=== PATIENT | male | born 1955 | race Caucasian/White ===

== ENCOUNTER 2020-01-26 02:43 | Outpatient (CLI) | payer BC, SELFPAY ==
[2020-01-26 18:39] LABS: SARS-CoV-2 RNA PCR Negative
== END 2020-01-26 02:44 | disposition home or self-care (01) ==
LOC: ANHCOVIDDT 02:43
PROVIDERS: PCP Family Medicine; Visit Provider Surgery
DX: Z01.812 Encounter for preprocedural laboratory examination (principal); Z20.828 Contact with and (suspected) exposure to other viral communicable diseases
CPT/HCPCS: 87635; C9803; U0003

== ENCOUNTER 2020-01-28 00:45 | Day surgery (SDC) | payer BC, SELFPAY ==
[2020-01-21 17:07] VITALS: BMI 25.0
[2020-01-28] VITALS (8 sets, daily range): BP systolic 112–149; BP diastolic 72–82; PULSE 54–68; RESP 14–20; TEMP 36.3–36.7; O2SAT 93–100; BMI 25.2
--- NOTE | 2020-01-28 07:33 | WPDHPUPDATE1 ---
History and Physical Update Update Date/Time: 01/28/20 07:33 History and Physical has been reviewed, including an updated exam of the patient. There are NO changes in the patient's condition. Risks, benefits, and alternatives have been discussed and questions answered. Patient agrees to proceed with procedure.
[2020-01-28] MEDS: LACTATED RINGERS 1,000 ML 30 ML IV CONT ×2 (10:21→12:46)
[2020-01-28] MEDS: ACETAMINOPHEN 500 MG TABLET 1000 MG PO (10:22)
[2020-01-28] MEDS: KETOROLAC 15 MG/ML VIAL (*BKC) IV PUSH (10:22)
[2020-01-28 10:31] LABS: Glucose Point of Care 99 (65-105)
--- NOTE | 2020-01-28 10:45 | WPDANESEPPF ---
Anes - Initial Pre Proc Eval Procedure: Operation Date: 01/28/20 11:30 Proposed Procedures p Repair Recurrent Right Inguinal Hernia - Jeff Bowling MD Date/Time: 01/28/20 10:45 Surgeon: Jeff Bowling MD Pre Op Diagnosis: recurrent right inguinal hernia Patient Data Age: 64 Gender: M Height: 5 ft 9 in Weight: 77.5 kg Last Vital Signs Temp 98.1 F 01/28/20 09:51 Pulse 68 01/28/20 09:51 Resp 16 01/28/20 09:51 BP 149/77 H 01/28/20 09:51 Pulse Ox 97 01/28/20 09:51 Allergies Allergy/AdvReac Type Severity Reaction Status Date / Time clarithromycin Allergy Intermediate Palpitation Verified 01/28/20 09:47 s METOCLOPRAMIDE HCL Allergy Intermediate Anxiety Uncoded 01/28/20 09:47 Home Medications Medication Instructions Recorded Confirmed Type amitriptyline 25 mg tablet 25 mg PO .QHS tablet 01/03/20 01/28/20 History coenzyme Q10 100 mg capsule 100 mg PO DAILY 01/03/20 01/28/20 History diltiazem HCl 120 mg 120 mg PO DAILY 01/03/20 01/28/20 History capsule,extended release 24 hr dutasteride 0.5 mg capsule 0.5 mg PO DAILY 01/03/20 01/28/20 History krill oil 500 mg capsule 500 mg PO DAILY 01/03/20 01/28/20 History metformin 500 mg tablet 250 mg PO BID tablet 01/03/20 01/28/20 History multivitamin 1 tablet PO DAILY 01/03/20 01/28/20 History perphenazine 2 mg tablet 2 mg PO DAILY PRN tablet 01/03/20 01/28/20 History rosuvastatin 20 mg tablet 5 mg PO .every other day tablet 01/03/20 01/28/20 History Bifidobacterium infantis [Align] 4 mg PO DAILY 01/28/20 01/28/20 History Laboratory Tests 01/28/20 10:27 POC Capillary Glucose 99 mg/dl mg/dl (65-105) Patient hx anesthesia problems: none Family hx anesthesia problems: none PMFSH Social History Social History Smoking status: Never smoker Second hand tobacco smoke exposure: No Alcohol intake: never Substance use: never Substance use type: does not use Living arrangements: with family Gender identity (if verbalized by the patient): Male Spiritual care concerns: No Anes - Eval Final PreProcedure Day of Procedure 01/28/20 10:45 Patient weight: normal Heart: regular rate and rhythm Lungs: clear to auscultation Airway: Mallampati scale class II Neurological: alert and oriented Last oral intake: >/= 8 hours ASA classification: III Emergent: no Anesthetic plan: proceed Anesthesia type and monitoring: general GIVS and standard monitoring Informed Consent: The patient's anesthetic plan and its attendant risks and benefits were discussed with the patient/family/POA. Questions were solicited and answers provided to the satisfaction of the patient/family/POA.
[2020-01-28] MEDS: ceFAZolin 2 GM/D5W 50 ML 2 GM/50 ML BAG IVPB (11:07)
--- NOTE | 2020-01-28 11:15 | PM.PROC ---
Procedure Note - Detailed Date of procedure: 01/28/20 Pre-op diagnosis: recurrent right inguinal hernia Recurrent right inguinal hernia Post-op diagnosis: same Procedure performed: Repair of Recurrent right inguinal hernia with 6 cm Parietex hernia mesh system Description of procedure: The patient was taken to surgery and IV sedation was administered. The right groin and genitalia were prepped and draped. Proposed incision was marked on the skin. Local was infiltrated into the skin and the deeper subcutaneous tissues. Incision was made and deepened through the subcutaneous. Crossing veins were cauterized and divided. Dissection was carried through Alfredo's fascia down to the external oblique aponeurosis. The aponeurosis was exposed as was the external ring. Additional local anesthesia was infiltrated deep to the aponeurosis in the area of the spermatic cord and inguinal canal contents. The aponeurosis was opened laterally and extended medially through the external ring. There was hernia mesh deep to the external oblique aponeurosis and the aponeurosis was quite adherent to this mesh. There were also some Ethibond sutures which I removed when they were found. I was able ill to dissect the leaves of the external oblique aponeurosis from the underlying hernia mesh pretty much intact. The leaves of the aponeurosis were dissected free from the spermatic cord as well. The ileoinguinal nerve was really not seen during the dissection. The spermatic cord was also very diminutive and was carefully dissected so that its vasculature would be preserved. The cord was then mobilized medially on a [place] drain. The cord was dissected back to the internal ring. The hernia was a direct hernia with a small neck and located in about the midportion of the direct space. It was carefully dissected down to its neck. Dissection was then carried out the hernia sac from the cord. The hernia sac was scored through the transversalis fascia circumferentially just above the neck. The sac was dunked into the retroperitoneum. The direct defect was small, it would barely admit my index finger. A 6 centimeter Parietex [place] was chosen. It was folded to form a plug. It was placed in the defect. The edges were sutured to the transversalis fascia with interrupted 3 0 Vicryl suture. The hernia defect was then partially closed with some additional 3 0 Vicryl suture. Patch was then cut to the appropriate size and placed over the inguinal canal floor. The lateral leaves were passed beyond the cord. The cord was then laid over the patch. The external oblique aponeurosis was closed with interrupted 3 0 Vicryl suture. Alfredo's fascia was closed with interrupted 3 0 Vicryl suture. The subcutaneous was closed with interrupted 4 0 Vicryl suture. Four 0 Vicryl subcuticular skin sutures were placed. The skin was closed finally with a running 4 0 Monocryl skin suture. The wound was dressed with Exofin surgical adhesive. The patient was awakened and taken to recovery in good condition. Sponge and needle counts were correct x2. Anesthesia: MAC and local (0.5% Marcaine with Exparel) Surgeon: Jeff Bowling MD Agronomy Technician: Ole BLEVINS Estimated blood loss (mL): 5 Drains: No Packing: No Pathology: none sent Complications: None Condition: stable Disposition: same day Findings: Small, medial, recurrent direct inguinal hernia.
[2020-01-28 13:09] LABS: Glucose Point of Care 99 (65-105)
== END 2020-01-28 14:50 | disposition home or self-care (01) ==
PROVIDERS: PCP Family Medicine; Visit Provider Surgery
PROC: (CPT 49520; principal; 2020-01-28 11:30)
DX: K40.91 Unilateral inguinal hernia, without obstruction or gangrene, recurrent (principal)
CPT/HCPCS: 49520; A9270; C1781; C9290; J0690; J1885; J2250; J2704; J7120

== ENCOUNTER 2020-01-28 20:42 | Emergency (ER) | payer BC, SELFPAY ==
[2020-01-28 20:44] VITALS: BP 158/89; PULSE 84; RESP 20; TEMP 36.9; O2SAT 97
--- NOTE | 2020-01-28 21:19 | ED.ABDPAIN ---
HPI - Abdominal Pain General Chief Complaint: Urogenital-Male Stated Complaint: unable to urinate. Time Seen by Provider: 01/28/20 20:51 Source: patient Mode of arrival: ambulatory Limitations: no limitations History of Present Illness HPI narrative: Neurosurgery 64 years old white male status post a right inguinal hernia surgery this morning. Came to the emergency room because unable to urinate since noon today. Related Data Home Medications Medication Instructions Recorded Confirmed amitriptyline 25 mg tablet 25 mg PO .QHS tablet 01/03/20 01/28/20 coenzyme Q10 100 mg capsule 100 mg PO DAILY 01/03/20 01/28/20 diltiazem HCl 120 mg 120 mg PO DAILY 01/03/20 01/28/20 capsule,extended release 24 hr dutasteride 0.5 mg capsule 0.5 mg PO DAILY 01/03/20 01/28/20 krill oil 500 mg capsule 500 mg PO DAILY 01/03/20 01/28/20 metformin 500 mg tablet 250 mg PO BID tablet 01/03/20 01/28/20 multivitamin 1 tablet PO DAILY 01/03/20 01/28/20 perphenazine 2 mg tablet 2 mg PO DAILY PRN tablet 01/03/20 01/28/20 rosuvastatin 20 mg tablet 5 mg PO .every other day tablet 01/03/20 01/28/20 Align 4 mg PO DAILY 01/28/20 01/28/20 Allergies Allergy/AdvReac Type Severity Reaction Status Date / Time clarithromycin Allergy Intermediate Palpitation Verified 01/28/20 20:47 s metoclopramide Allergy Anxiety Verified 01/28/20 22:18 Review of Systems Review of Systems: Narrative: CONSTITUTIONAL: Denies fever, chills, or sweats. EYES: Denies visual changes, redness, or discharge. ENT: Denies rhinorrhea, congestion, sore throat, or otalgia. CARDIOVASCULAR: Denies chest pain, palpitations, or edema. RESPIRATORY: Denies cough or dyspnea. GASTROINTESTINAL: Denies abdominal pain, nausea, vomiting, or diarrhea. GENITOURINARY: Denies dysuria or hematuria. SKIN: Denies rash or itching. MUSCULOSKELETAL: Denies back pain, joint pain, or myalgia. NEUROLOGIC: Denies headache, numbness, or weakness. PSYCHIATRIC: Denies anxiety or depression. [facility] Past Medical History Medical History Anxiety BPH w/o urinary obs/LUTS Dyslipidemia Essential (primary) hypertension GERD without esophagitis Hx of diabetes mellitus Hyperlipidemia Hypertension Pre-diabetes Surgical History Surgical History History of cataract surgery b/l - 10/2019 History of knee surgery (~2019) right - 03/2019 History of right inguinal hernia repair 1999 Family History Family History Father Cancer Other Family history of cardiovascular disease Family history of hypercholesterolemia Hypertension Social History Social History Smoking status: Never smoker Second hand tobacco smoke exposure: No Alcohol intake: never Substance use: never Substance use type: does not use Gender identity (if verbalized by the patient): Male Spiritual care concerns: No Exam Narrative: Exam Narrative: General appearance: Well-developed, well-nourished Skin: Normal color Head: Normocephalic, nontraumatic Eyes: Clear conjunctiva ENT: Oropharynx normal, ears normal, nose normal Neck: Supple, nontender Chest and respiratory: Airway patent, no respiratory distress, no accessory muscle use Heart: Regular rate/rhythm Abdomen: Soft, mild tenderness suprapubic area and slight distention , no organomegaly, quiet bowel sounds Vascular: Normal peripheral pulses, normal capillary refill. Musculoskeletal: Normal range of motion, nontender back Neurologic: Alert and oriented ?3, FLAP LINING BINDER is normal as tested, no gross motor deficit
[2020-01-28] MEDS: LIDOCAINE HCL 2% GEL UROJET 10 ML PKG (22:00)
[2020-01-28 22:01] VITALS: BP 135/87; PULSE 77; RESP 18; TEMP 36.7; O2SAT 99
[2020-01-28 23:00] VITALS: BP 137/81; PULSE 82; RESP 18; TEMP 36.6; O2SAT 99
== END 2020-01-28 23:00 | disposition home or self-care (01) ==
PROVIDERS: Emergency Provider Emergency Medicine; PCP Family Medicine
DX: N40.1 Benign prostatic hyperplasia with lower urinary tract symptoms (principal); R33.8 Other retention of urine; Z98.890 Other specified postprocedural states; F41.9 Anxiety disorder, unspecified; E78.5 Hyperlipidemia, unspecified; I10 Essential (primary) hypertension; K21.9 Gastro-esophageal reflux disease without esophagitis; E11.9 Type 2 diabetes mellitus without complications; Z98.42 Cataract extraction status, left eye; Z98.41 Cataract extraction status, right eye; Z79.84 Long term (current) use of oral hypoglycemic drugs
CPT/HCPCS: 51702; 99283

== ENCOUNTER 2022-07-25 10:43 | Emergency (ER) | payer BC, SELFPAY ==
[2022-07-25 11:22] VITALS: BP 123/80; PULSE 76; RESP 16; TEMP 37.3; O2SAT 98
--- NOTE | 2022-07-25 11:54 | ED.URI ---
HPI - URI/Sore Throat General Chief Complaint: Upper Respiratory Infection Stated Complaint: uri Time Seen by Provider: 07/25/22 11:54 Source: patient Mode of arrival: ambulatory Limitations: no limitations History of Present Illness HPI Narrative: 67-year-old male presents with complaint of nasal congestion, cough, irritated throat, fatigue for the last 5 days. Reports that his had similar symptoms while [place] a cruise ship last week and she tested positive for COVID. Patient has taken 2 home COVID test are both were negative. He denies chest pain and shortness of breath. He reports that he only has a fever in the evenings. He is taking Coricidin to treat his symptoms. Denies nausea vomiting diarrhea. All systems reviewed and negative except as noted above. Related Data Home Medications Medication Instructions Recorded Confirmed amitriptyline 25 mg tablet 25 mg PO .QHS 01/03/20 07/25/22 coenzyme Q10 100 mg capsule (Co 100 mg PO DAILY 01/03/20 07/25/22 Q-10) diltiazem HCl 120 mg 120 mg PO DAILY 01/03/20 07/25/22 capsule,extended release 24 hr (Cartia XT) dutasteride 0.5 mg capsule 0.5 mg PO DAILY 01/03/20 07/25/22 krill oil 500 mg capsule 500 mg PO DAILY 01/03/20 07/25/22 metformin 500 mg tablet 250 mg PO BID 01/03/20 07/25/22 multivitamin 1 tablet PO DAILY 01/03/20 07/25/22 perphenazine 2 mg tablet 2 mg PO DAILY PRN Anxiety 01/03/20 07/25/22 rosuvastatin 20 mg tablet 5 mg PO .every other day 01/03/20 07/25/22 Bifidobacterium infantis 4 mg 4 mg PO DAILY 01/28/20 07/25/22 capsule (Align) alfuzosin 10 mg tablet,extended 10 mg PO DAILY 07/25/22 07/25/22 release 24 hr amitriptyline 25 mg tablet 25 mg PO DAILY 07/25/22 07/25/22 Allergies Allergy/AdvReac Type Severity Reaction Status Date / Time clarithromycin AdvReac Intermediate Palpitation Verified 07/25/22 12:00 s metoclopramide AdvReac Intermediate Anxiety Verified 07/25/22 12:00 Review of Systems Review of Systems: CONSTITUTIONAL: Denies fever, chills, or sweats. reports fatigue EYES: Denies visual changes, redness, or discharge. ENT: Reports rhinorrhea, congestion, sore throat. denies otalgia. CARDIOVASCULAR: Denies chest pain, palpitations, or edema. RESPIRATORY: reports cough. Denies dyspnea. GASTROINTESTINAL: Denies abdominal pain, nausea, vomiting, or diarrhea. GENITOURINARY: Denies dysuria or hematuria. SKIN: Denies rash or itching. MUSCULOSKELETAL: Denies back pain, joint pain, or myalgia. NEUROLOGIC: Denies headache, numbness, or weakness. PSYCHIATRIC: Denies anxiety or depression. All other systems reviewed are negative, except as documented in HPI. [facility] Past Medical History Medical History (Updated 07/25/22 @ 12:26 by Dominique Bourgeois NP) Anxiety BPH w/o urinary obs/LUTS Dyslipidemia Essential (primary) hypertension GERD without esophagitis Hx of diabetes mellitus Hyperlipidemia Hypertension Pre-diabetes Surgical History Surgical History History of cataract surgery b/l - 10/2019 History of knee surgery (~2019) right - 03/2019 History of right inguinal hernia repair 2000 01/28/20 repair recurrent inguinal hernia. Family History Family History Father Cancer Other Family history of cardiovascular disease Family history of hypercholesterolemia Hypertension Social History Social History Smoking status: Never smoker Second hand tobacco smoke exposure: No Alcohol intake: never Substance use: never Substance use type: does not use Living arrangements: with family Gender identity (if verbalized by the patient): Male Spiritual care concerns: No Comments At time of signature, agree with nursing past medical, surgical, social and family history. There is no relevant family history pertinent to the presenting complaint
== END 2022-07-25 12:32 | disposition home or self-care (01) ==
PROVIDERS: Emergency Provider Nurse Practitioner Family
DX: J06.9 Acute upper respiratory infection, unspecified (principal); Z20.822 Contact with and (suspected) exposure to COVID-19; N40.0 Benign prostatic hyperplasia without lower urinary tract symptoms; E78.5 Hyperlipidemia, unspecified; I10 Essential (primary) hypertension; K21.9 Gastro-esophageal reflux disease without esophagitis; E11.9 Type 2 diabetes mellitus without complications
CPT/HCPCS: 87426; 99213; C9803; G0463

== ENCOUNTER 2022-08-11 06:56 | Emergency (ER) | payer BC, SELFPAY ==
--- NOTE | ~2022-08-11 | XR_ITS ---
EXAMINATION: XR chest 2V DATE: 08/11/2022 07:56 INDICATION: Syncope. TECHNIQUE: Frontal and lateral views of the chest were obtained. 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 No pleural effusion or pneumothorax. The heart size is normal. IMPRESSION: 1. No acute cardiopulmonary disease. Reviewed, dictated and finalized at location A. OR PAINTER
--- NOTE | ~2022-08-11 | CT_ITS ---
EXAMINATION: CT brain wo con DATE: 08/11/2022 07:48 INDICATION: Syncope. TECHNIQUE: Computed tomography (CT) of the head was performed without intravenous contrast. The mA wa s adjusted according to patient size. Iterative reconstruction technique was employed. The dose-lengt h product was 605.33 mGy-cm. COMPARISON: None FINDINGS: There is no intracranial hemorrhage, acute infarction, or abnormal intracranial mass lesion . The ventricles are normal in size. There are likely changes of ocular lens replacement surgeries. T here is mucosal thickening in the paranasal sinuses. The mastoid air cells are normal. IMPRESSION: 1. Normal brain. Reviewed, dictated and finalized at location A. CLE INSPECTOR IMPRESSION: 1. Normal brain.
[2022-08-11 07:04] VITALS: BP 93/58; PULSE 53; RESP 14; TEMP 36.1; O2SAT 98
--- NOTE | 2022-08-11 07:10 | ECG_ITS ---
Measurements Intervals [place] Rate: 53 P: 24 NE: 165 QRS: 15 QRSD: 105 T: 24 QT: 451 QTc: 424 Interpretive Statements SINUS BRADYCARDIA BORDERLINE ECG COMPARED TO ECG 02/26/2019 08:31:25 SINUS BRADYCARDIA NOW PRESENT Electronically Signed On 08-11-2022 14:29:21 QUALITY CONTROL ASSESSOR by Akil Schmidt D.O.
--- NOTE | 2022-08-11 07:24 | ED.FALL ---
HPI - Fall General Chief Complaint: Fall Stated Complaint: fall x2 last night Time Seen by Provider: 08/11/22 07:09 History of Present Illness HPI Narrative: Patient is a 67-year-old male who presents ER with syncope x2. Woke up this morning and try to go bathroom when he felt abnormal and close to the ground. He then got in a cup and then he fell between the toilet and his bathtub. reports she is very pale and looks like she may pass out for the third time. He has laceration to his left hand. Recently started Flomax 3 weeks ago. No changes in blood pressure medication. He is on no blood thinning medication. No chest pain or chest pressure. Reports his heart had alerted him that he may be in A-fib earlier in the week so he made an appointment to be evaluated by his doctor this week. No recent fevers or chills or sweats. No dysuria. No diarrhea/nausea/vomiting. Eating and drinking normally. Related Data Home Medications Medication Instructions Recorded Confirmed amitriptyline 25 mg tablet 25 mg PO .QHS 01/03/20 07/25/22 coenzyme Q10 100 mg capsule (Co 100 mg PO DAILY 01/03/20 07/25/22 Q-10) diltiazem HCl 120 mg 120 mg PO DAILY 01/03/20 07/25/22 capsule,extended release 24 hr (Cartia XT) dutasteride 0.5 mg capsule 0.5 mg PO DAILY 01/03/20 07/25/22 krill oil 500 mg capsule 500 mg PO DAILY 01/03/20 07/25/22 metformin 500 mg tablet 250 mg PO BID 01/03/20 07/25/22 multivitamin 1 tablet PO DAILY 01/03/20 07/25/22 perphenazine 2 mg tablet 2 mg PO DAILY PRN Anxiety 01/03/20 07/25/22 rosuvastatin 20 mg tablet 5 mg PO .every other day 01/03/20 07/25/22 Bifidobacterium infantis 4 mg 4 mg PO DAILY 01/28/20 07/25/22 capsule (Align) alfuzosin 10 mg tablet,extended 10 mg PO DAILY 07/25/22 07/25/22 release 24 hr amitriptyline 25 mg tablet 25 mg PO DAILY 07/25/22 07/25/22 Allergies Allergy/AdvReac Type Severity Reaction Status Date / Time clarithromycin AdvReac Intermediate Palpitation Verified 08/11/22 07:33 s metoclopramide AdvReac Intermediate Anxiety Verified 08/11/22 07:33 Review of Systems Review of Systems: All systems reviewed & are unremarkable except as noted in HPI and below Constitutional: Constitutional: Denies chills, Denies fatigue and Denies fever(s) Cardiovascular: Cardiovascular: Denies chest pain, Denies rapid heart rate and Denies radiating jaw, neck or arm pain Respiratory: Respiratory: Denies cough and Denies dyspnea Gastrointestinal: Gastrointestinal: Denies abdominal pain, Denies diarrhea, Denies nausea and Denies vomiting Genitourinary: Genitourinary: Denies dysuria and Denies urinary frequency Neurologic: Reports syncope, Denies headache(s), Denies focal weakness and Denies numbness PMFSH Past Medical History Medical History (Updated 08/11/22 @ 08:55 by Kavin Damon MD) Anxiety BPH w/o urinary obs/LUTS Dyslipidemia Essential (primary) hypertension GERD without esophagitis Hx of diabetes mellitus Hyperlipidemia Hypertension Pre-diabetes Surgical History Surgical History History of cataract surgery b/l - 10/2019 History of knee surgery (~2019) right - 03/2019 History of right inguinal hernia repair 2000 01/28/20 repair recurrent inguinal hernia. Family History Family History Father Cancer Other Family history of cardiovascular disease Family history of hypercholesterolemia Hypertension Social History Social History Smoking status: Never smoker Second hand tobacco smoke exposure: No Alcohol intake: never Substance use: never Substance use type: does not use Living arrangements: with family Gender identity (if verbalized by the patient): Male Spiritual care concerns: No Exam Narrative: GENERAL: Well-appearing, well-nourished, and in no acute distress. HE
[2022-08-11] MEDS: SODIUM CHLORIDE 0.9% IV 1,000 ML 999 ML IV CONT (07:31)
[2022-08-11 07:34] VITALS: BP 107/63; BP 113/67; PULSE 55; PULSE 57
[2022-08-11 07:35] VITALS: BP 99/64; PULSE 63
[2022-08-11 07:42] VITALS: RESP 18; O2SAT 100
[2022-08-11 07:42] LABS: Basophils Percent Auto 0.7 % (0.2-1.2); Eosinophils Absolute Auto 0.1 K/mm3 (0-0.3); Eosinophils Percent Auto 2.6 % (0-4.4); Hematocrit 41.2 % (42.0-52.0); Hemoglobin 13.8 g/dL (14.0-18.0); Immature Granulocyte Absolute 0.04 K/mm3 (0.00-0.031); Immature Granulocyte Percent A 0.9 % (0-0.5); Lymphocytes Absolute Auto 1.21 K/mm3 (0.9-3.2); Lymphocytes Percent Auto 26.2 % (18.3-44.2); Mean Corpuscular HGB Conc 33.5 g/dl (32-36); Mean Corpuscular Hemoglobin 33.5 pg (26-34); Mean Platelet Volume 8.8 fl (7.4-10.4); Monocytes Absolute Auto 0.4 K/mm3 (0.1-0.6); Monocytes Percent Auto 9.5 % (2.6-8.5); Neutrophils Absolute Auto 2.8 K/mm3 (1.3-6.7); Neutrophils Percent Auto 60.1 % (45.5-73.1); Platelet Count Result 219 k/mm3 (150-375); Red Blood Count 4.12 M/mm3 (4.6-6.20); Red Cell Distribution Width 12.1 % (11.5-14.5); White Blood Count 4.6 K/mm3 (4.5-10.0)
[2022-08-11 07:52] LABS: Alanine Aminotransferase 20 U/L (6-50); Alkaline Phosphatase 74 U/L (38-126); Anion Gap 7 mmol/L (8-16); Aspartate Amino Transferase 25 U/L (17-59); Bilirubin,Total 0.7 mg/dL (0.2-1.3); Blood Urea Nitrogen 21 mg/dL (9-20); Calcium 8.3 mg/dL (8.4-10.2); Carbon Dioxide 26 mmol/L (22-30); Chloride 105 mmol/L (98-107); Estimated CRCL calculation 64 ml/min; Estimated Glomerular Filt Rate > 60; Glucose 155 mg/dL (65-110); INR 1.1; Partial Thromboplastin Time 21.8 SECONDS (22.3-36.8); Potassium 3.7 mmol/L (3.4-5.0); Prothrombin Time 13.4 Seconds (11.1-14.7); Sodium 138 mmol/L (137-145)
[2022-08-11 08:37] VITALS: BP 110/65; BP 111/75; BP 114/76; PULSE 59; PULSE 62; PULSE 66
[2022-08-11 09:10] VITALS: BP 124/71; PULSE 62; RESP 18; O2SAT 100
== END 2022-08-11 09:10 | disposition home or self-care (01) ==
PROVIDERS: Emergency Provider Emergency Medicine
DX: R55 Syncope and collapse (principal); S01.81XA Laceration without foreign body of other part of head, initial encounter; R00.1 Bradycardia, unspecified; F41.9 Anxiety disorder, unspecified; I10 Essential (primary) hypertension; K21.9 Gastro-esophageal reflux disease without esophagitis; E11.9 Type 2 diabetes mellitus without complications; Z79.84 Long term (current) use of oral hypoglycemic drugs; W01.0XXA Fall on same level from slipping, tripping and stumbling without subsequent striking against object, initial encounter
CPT/HCPCS: 12011; 36415; 70450; 71046; 80053; 85025; 85610; 85730; 93005; 96360; 99284; J7030

== ENCOUNTER 2023-10-03 12:35 | Emergency (ER) | payer BC, SELFPAY ==
--- NOTE | ~2023-10-03 | XR_ITS ---
EXAMINATION: XR chest 2V DATE: 10/03/2023 14:21 INDICATION: Shortness of breath TECHNIQUE: frontal and lateral views of the chest were obtained. COMPARISON: Chest radiograph dated 08/11/2022 FINDINGS: The lungs remain clear with no focal airspace opacities, pulmonary edema, pleural effusion or pneumot horax. The cardiomediastinal silhouette is normal. Visualized bones and soft tissues are unremarkable . IMPRESSION: 1. No acute cardiopulmonary disease. Reviewed, dictated and finalized at location A.
[2023-10-03 13:12] VITALS: BP 141/76; PULSE 78; RESP 20; TEMP 36.8; O2SAT 100
--- NOTE | 2023-10-03 14:09 | ED.SOB ---
HPI - SOB/Dyspnea General Chief Complaint: Shortness of Breath/Dyspnea Stated Complaint: SOB Time Seen by Provider: 10/03/23 14:09 Source: patient Mode of arrival: ambulatory Limitations: no limitations History of Present Illness HPI Narrative: 68-year-old male with history of hypertension presents with complaint shortness of breath when exercising for the past 2-3 months. Patient states that he has noticed a postnasal drainage, coughing in the mornings for the past couple months. States he is able to cough up some mucus in the mornings and then usually feels better. Does not cough throughout the day. Does not cough while exercising. Patient has been a runner for several years. Runs At least 3 miles daily. over the past 2-3 months has noticed that he is getting fatigue, winded more easily while running. Today while running on treadmill shortness of breath was worse. Denies chest pain. Patient states that he had a full exam, echocardiogram with a infant room teacher within the last 6 months. Wear a heart monitor for 30 days because he was having palpitations. Stop drinking caffeine because of this. Recently, has not had any palpitations. patient concerned about his lungs . Requesting a chest x-ray. No history of smoking, asthma. no shortness of breath at this time. No shortness of breath with regular activities. All systems reviewed and negative except as noted above. Related Data Home Medications Medication Instructions Recorded Confirmed amitriptyline 25 mg tablet 25 mg PO .QHS 01/03/20 10/03/23 coenzyme Q10 100 mg capsule (Co 100 mg PO DAILY 01/03/20 10/03/23 Q-10) diltiazem HCl 120 mg 120 mg PO DAILY 01/03/20 10/03/23 capsule,extended release 24 hr (Cartia XT) dutasteride 0.5 mg capsule 0.5 mg PO DAILY 01/03/20 10/03/23 krill oil 500 mg capsule 500 mg PO DAILY 01/03/20 10/03/23 metformin 500 mg tablet 250 mg PO BID 01/03/20 10/03/23 multivitamin 1 tablet PO DAILY 01/03/20 10/03/23 rosuvastatin 20 mg tablet 5 mg PO .every other day 01/03/20 10/03/23 Bifidobacterium infantis 4 mg 4 mg PO DAILY 01/28/20 10/03/23 capsule (Align) alfuzosin 10 mg tablet,extended 10 mg PO DAILY 07/25/22 10/03/23 release 24 hr amitriptyline 25 mg tablet 25 mg PO DAILY 07/25/22 10/03/23 Allergies Allergy/AdvReac Type Severity Reaction Status Date / Time clarithromycin AdvReac Intermediate Palpitation Verified 10/03/23 14:15 s metoclopramide AdvReac Intermediate Anxiety Verified 10/03/23 14:15 Review of Systems Review of Systems: CONSTITUTIONAL: Denies fever, chills, or sweats. EYES: Denies visual changes, redness, or discharge. ENT: Denies rhinorrhea, congestion, sore throat, or otalgia. CARDIOVASCULAR: Denies chest pain, palpitations, or edema. RESPIRATORY: Denies cough Reports dyspnea with exercise. GASTROINTESTINAL: Denies abdominal pain, nausea, vomiting, or diarrhea. GENITOURINARY: Denies dysuria or hematuria. SKIN: Denies rash or itching. MUSCULOSKELETAL: Denies back pain, joint pain, or myalgia. NEUROLOGIC: Denies headache, numbness, or weakness. PSYCHIATRIC: Denies anxiety or depression. All other systems reviewed are negative, except as documented in HPI. [facility] Past Medical History Medical History (Updated 10/03/23 @ 14:49 by Dominique Bourgeois NP) Anxiety BPH w/o urinary obs/LUTS Dyslipidemia Essential (primary) hypertension GERD without esophagitis Hx of diabetes mellitus Hyperlipidemia Hypertension Pre-diabetes Surgical History Surgical History History of cataract surgery b/l - 10/2019 History of knee surgery (~2019) right - 03/2019 History of right inguinal hernia repair 199901/28/20 repair recurrent inguinal hernia. Family History Family History Father Cancer Other Family history of cardiovascular disease Family history of hypercholesterolemia Hypertension
--- NOTE | 2023-10-03 14:34 | ECG_ITS ---
SEE SCANNED COPY FOR CONFIRMED REPORT MTDD
== END 2023-10-03 14:55 | disposition home or self-care (01) ==
PROVIDERS: Emergency Provider Nurse Practitioner Family; PCP Internal Medicine
DX: I45.10 Unspecified right bundle-branch block (principal); N40.0 Benign prostatic hyperplasia without lower urinary tract symptoms; E78.5 Hyperlipidemia, unspecified; I10 Essential (primary) hypertension; K21.9 Gastro-esophageal reflux disease without esophagitis; E11.9 Type 2 diabetes mellitus without complications; Z79.84 Long term (current) use of oral hypoglycemic drugs
CPT/HCPCS: 71046; 93005; 99213; G0463

== ENCOUNTER 2024-01-25 09:32 | Emergency (ER) | payer BC, SELFPAY ==
[2024-01-25 09:47] VITALS: BP 145/80; PULSE 104; RESP 20; TEMP 38.7; O2SAT 96
--- NOTE | 2024-01-25 09:51 | ED.URI ---
HPI - URI/Sore Throat General Chief Complaint: Upper Respiratory Infection Stated Complaint: cough,difficult breathing when walking Time Seen by Provider: 01/25/24 09:51 Source: patient Mode of arrival: ambulatory Limitations: no limitations History of Present Illness HPI Narrative: 68-year-old male presents with complaint cough , fatigue, runny nose for 3 days. Recently got home from cruise. Reports multiple people from cruise coughing. No one has done COVID test. No chest pain or shortness of breath. Taking [id number] Coricidin cold and flu to treat symptoms. All systems reviewed and negative except as noted above. Related Data Home Medications Medication Instructions Recorded Confirmed amitriptyline 25 mg tablet 25 mg PO .QHS 01/03/20 01/25/24 coenzyme Q10 100 mg capsule (Co 100 mg PO DAILY 01/03/20 01/25/24 Q-10) diltiazem HCl 120 mg 120 mg PO DAILY 01/03/20 01/25/24 capsule,extended release 24 hr (Cartia XT) dutasteride 0.5 mg capsule 0.5 mg PO DAILY 01/03/20 01/25/24 krill oil 500 mg capsule 500 mg PO DAILY 01/03/20 01/25/24 metformin 500 mg tablet 250 mg PO BID 01/03/20 01/25/24 multivitamin 1 tablet PO DAILY 01/03/20 01/25/24 rosuvastatin 20 mg tablet 5 mg PO .every other day 01/03/20 01/25/24 Bifidobacterium infantis 4 mg 4 mg PO DAILY 01/28/20 01/25/24 capsule (Align) alfuzosin 10 mg tablet,extended 10 mg PO DAILY 07/25/22 01/25/24 release 24 hr amitriptyline 25 mg tablet 25 mg PO DAILY 07/25/22 01/25/24 Allergies Allergy/AdvReac Type Severity Reaction Status Date / Time clarithromycin AdvReac Intermediate Palpitation Verified 01/25/24 09:37 s metoclopramide AdvReac Intermediate Anxiety Verified 01/25/24 09:37 Review of Systems Review of Systems: CONSTITUTIONAL: Denies fever, chills, or sweats. reports fatigue. EYES: Denies visual changes, redness, or discharge. ENT: Reports rhinorrhea, congestion. Denies sore throat, or otalgia. CARDIOVASCULAR: Denies chest pain, palpitations, or edema. RESPIRATORY: Reports cough . Denies dyspnea. GASTROINTESTINAL: Denies abdominal pain, nausea, vomiting, or diarrhea. GENITOURINARY: Denies dysuria or hematuria. SKIN: Denies rash or itching. MUSCULOSKELETAL: Denies back pain, joint pain, or myalgia. NEUROLOGIC: Denies headache, numbness, or weakness. PSYCHIATRIC: Denies anxiety or depression. All other systems reviewed are negative, except as documented in HPI. [facility] Past Medical History Medical History (Updated 01/25/24 @ 10:15 by Dominique Bourgeois NP) Anxiety BPH w/o urinary obs/LUTS Dyslipidemia Essential (primary) hypertension GERD without esophagitis Hx of diabetes mellitus Hyperlipidemia Hypertension Pre-diabetes Surgical History Surgical History History of cataract surgery b/l - 10/2019 History of knee surgery (~2019) right - 03/2019 History of right inguinal hernia repair 199901/28/20 repair recurrent inguinal hernia. Family History Family History Father Cancer Other Family history of cardiovascular disease Family history of hypercholesterolemia Hypertension Social History Social History Smoking status: Never smoker Second hand tobacco smoke exposure: No Alcohol intake: current Substance use: never Substance use type: does not use Living arrangements: with family Gender identity (if verbalized by the patient): Male Spiritual care concerns: No Comments At time of signature, agree with nursing past medical, surgical, social and family history. There is no relevant family history pertinent to the presenting complaint. Exam Narrative: GENERAL: This is a well-nourished, well-developed patient, in no apparent distress. HEAD: normocephalic, atraumatic. EYES: PERRL. Sclera clear/white. Vision is grossly i
[2024-01-25 09:55] VITALS: PULSE 104; RESP 20; O2SAT 98
[2024-01-25 10:20] VITALS: PULSE 99; RESP 20; TEMP 37.2; O2SAT 98
== END 2024-01-25 10:20 | disposition home or self-care (01) ==
PROVIDERS: Emergency Provider Nurse Practitioner Family; PCP Internal Medicine
DX: U07.1 COVID-19 (principal); N40.0 Benign prostatic hyperplasia without lower urinary tract symptoms; E78.5 Hyperlipidemia, unspecified; I10 Essential (primary) hypertension; K21.9 Gastro-esophageal reflux disease without esophagitis; E11.9 Type 2 diabetes mellitus without complications; Z79.84 Long term (current) use of oral hypoglycemic drugs
CPT/HCPCS: 87426; 99213; G0463